=== PATIENT | female | born 1955 | race Caucasian/White ===

== ENCOUNTER 2019-06-06 19:54 | Emergency (ER) | payer MEDICAID ==
[~2019-06-06] VITALS: Ht 165.1 cm; Wt 79.4 kg
[~2019-06-06 19:54] MED LIST: CARVEDILOL6.25 MG PO; GABAPENTIN 100100 MG PO; LISINOPRIL5 MG PO; PROTONIX40 M1 PO; PROZAC10 MG PO; TRAZODONE 150150 M1 PO; VITAMIN B-12500 MCG PO
[2019-06-06] MEDS ORDERED: VISTARIL 25 MG25 M1 PO (20:00)
[2019-06-06 22:20] LABS: ABSOLUTE EOSINOPHILS 0.2 thou/uL (0.0-0.7); ABSOLUTE LYMPHOCYTES 1.3 thou/uL (0.8-5.3); ABSOLUTE MONOCYTES 0.2 thou/uL (0.0-1.2); ABSOLUTE NEUTROPHILS 3.1 thou/uL (1.6-8.1); BASOPHILS 0.8 %; EOSINOPHILS 4.3 %; HEMATOCRIT 36.9 % (37.0-47.0); HEMOGLOBIN 12.1 gm/dL (12.0-15.0); LYMPHOCYTES 27.3 %; MCH 30.2 pg (26.0-34.0); MCHC 32.9 g/dL (28.0-37.0); MCV 91.8 fL (80.0-100.0); MONOCYTES 4.3 %; MPV 8.4 fl. (7.2-11.1); NUCLEATED RBCS 0 /100WBC; PLATELET COUNT* 157 thou/uL (150-400); POLYS 63.3 %; RBC 4.02 mil/uL (4.20-5.00); WBC 4.9 thou/uL (4.0-11.0)
[2019-06-06 22:37] LABS: CALCIUM 8.2 mg/dL (8.5-10.1); CREATININE 0.8 mg/dL (0.6-1.3); POTASSIUM 3.9 mmol/L (3.5-5.1)
[2019-06-06 22:41] LABS: ALBUMIN 3.3 g/dL (3.4-5.0); TOTAL BILIRUBIN 0.5 mg/dL (<0.1-1.0); TOTAL PROTEIN 6.3 g/dL (6.4-8.2)
[2019-06-06 23:54] LABS: SALICYLATE < 2.8 mg/dL (2.8-20.0)
[2019-06-06 23:56] LABS: ACETAMINOPHEN < 2 ug/mL (10-30)
[2019-06-07 00:40] VITALS: BP 135/77
== END 2019-06-07 00:40 | disposition home or self-care (01) ==
LOC: M.ERS 19:54
PROVIDERS: Personal Emergency Response Attendant
DX: S52.591A Other fractures of lower end of right radius, initial encounter for closed fracture (principal); S52.691A Other fracture of lower end of right ulna, initial encounter for closed fracture; S40.012A Contusion of left shoulder, initial encounter; F10.10 Alcohol abuse, uncomplicated; Y90.8 Blood alcohol level of 240 mg/100 ml or more; I10 Essential (primary) hypertension; K21.9 Gastro-esophageal reflux disease without esophagitis; Z98.890 Other specified postprocedural states; X58.XXXA Exposure to other specified factors, initial encounter; Y93.89 Activity, other specified; Y92.89 Other specified places as the place of occurrence of the external cause; Y99.8 Other external cause status

== ENCOUNTER 2020-12-06 15:47 | Emergency (ER) | payer MEDICAID ==
[~2020-12-06] VITALS: Ht 165.1 cm; Wt 77.1 kg
[~2020-12-06 15:47] MED LIST changes: +VISTARIL 25 MG25 M1 PO
[2020-12-06] MEDS ORDERED: HYDROXYZINE PA100 MG PO (16:00)
[2020-12-06] MEDS ORDERED: PRINIVIL40 MG PO (16:01)
[2020-12-06] MEDS ORDERED: NEURONTIN 300M300 M2 PO (16:01)
[2020-12-06] MEDS ORDERED: PROZAC20 M1 PO (16:02)
[2020-12-06] MEDS ORDERED: ASA81BEC PO (16:02)
[2020-12-06] MEDS ORDERED: GRALISE600 MG PO (16:03)
[2020-12-06] MEDS ORDERED: VISTARIL50 MG PO (16:03)
[2020-12-06] MEDS ORDERED: DESYREL150 MG PO (16:04)
[2020-12-06] MEDS ORDERED: LEXAPRO20 MG PO (16:04)
[2020-12-06] MEDS ORDERED: NAPROSYN500 M1 PO (16:04)
[2020-12-06 16:56] LABS: HEMOGLOBIN 13.1 gm/dL (12.0-15.0); MCH 27.5 pg (26.0-34.0); MCV 85.3 fL (80.0-100.0); NUCLEATED RBCS 0 /100WBC
[2020-12-06 16:59] LABS: ABSOLUTE EOSINOPHILS 0.2 thou/uL (0.0-0.7); ABSOLUTE LYMPHOCYTES 2.2 thou/uL (0.8-5.3); ABSOLUTE MONOCYTES 0.4 thou/uL (0.0-1.2); ABSOLUTE NEUTROPHILS 2.7 thou/uL (1.6-8.1); BASOPHILS 0.8 %; EOSINOPHILS 3.7 %; HEMATOCRIT 40.4 % (37.0-47.0); LYMPHOCYTES 39.9 %; MCHC 32.3 g/dL (28.0-37.0); MONOCYTES 7.1 %; MPV 8.1 fl. (7.2-11.1); POLYS 48.5 %; RBC 4.74 mil/uL (4.20-5.00); RDW-CV 16.5 % (10.5-14.5); WBC 5.6 thou/uL (4.0-11.0)
--- NOTE | 2020-12-06 17:08 | EKG ---
[place] [address] ELECTROCARDIOGRAM REPORT Name: BONNY OREILLY Room: [facility]#: [id number] Admission: 12/06/20 Attend Phys: Discharge: Date of : 59 Date of Service: 12/06/20 1610 Report #: [id number] THIS REPORT FOR: //name// [facility] ED Test Date: 2020-12-06 Test Time: 16:10:26 Pat Name: BONNY OREILLY Department: Room: Gender: F [employer]: : 1955 Requested By: Cody Perez Order Number: [id number] MD: Joseph Hidalgo Measurements Intervals Novelty Rate: 64 P: AK: QRS: 0 QRSD: 95 T: 15 QT: 450 QTc: 465 Interpretive Statements sinus rhythm with first degree av block Inferior infarct, old Consider anterior infarct Compared to ECG 02/10/2017 04:59:05 Prolonged QT interval no longer present Myocardial infarct finding still present Electronically Signed On 12-06-2020 17:08:14 CDT by Joseph Hidalgo [email or web address] <ELECTRONICALLY SIGNED> By: Joseph Hidalgo MD, FACC 12/06/20 1708 1610 1610 Joseph Hidalgo MD, [facility] /EPI
[2020-12-06 17:12] LABS: CALCIUM 8.9 mg/dL (8.5-10.1); CREATININE 1.2 mg/dL (0.6-1.3); POTASSIUM 4.8 mmol/L (3.5-5.1)
[2020-12-06 17:17] LABS: ALBUMIN 4.7 g/dL (3.4-5.0); TOTAL BILIRUBIN 0.4 mg/dL (<0.1-1.0); TOTAL PROTEIN 7.7 g/dL (6.4-8.2)
[2020-12-06 17:58] LABS: PLATELET COUNT* 139 thou/uL (150-400)
[2020-12-06 20:37] VITALS: BP 126/71
== END 2020-12-06 20:38 | disposition short-term general hospital (02) ==
LOC: M.ERS 15:47
PROVIDERS: Emergency Medicine Emergency Medical Services
DX: S02.119A Unspecified fracture of occiput, initial encounter for closed fracture (principal); Z20.822 Contact with and (suspected) exposure to COVID-19; F10.129 Alcohol abuse with intoxication, unspecified; Y90.8 Blood alcohol level of 240 mg/100 ml or more; I10 Essential (primary) hypertension; K21.9 Gastro-esophageal reflux disease without esophagitis; Z98.890 Other specified postprocedural states; W18.39XA Other fall on same level, initial encounter; Y93.89 Activity, other specified; Y92.091 Bathroom in other non-institutional residence as the place of occurrence of the external cause; Y99.8 Other external cause status